=== PATIENT | female | born 1970 | race Caucasian/White ===

== ENCOUNTER → 2016-12-07 | Outpatient (CLI) | payer OTHER ==
[~2016-12-07] MED LIST: ALPR0.25 PO; AZEL137S4 NAS; BUSP15TA PO; CALC-55 PO; CETI10TA24 PO; ETAN50DI2 INJ; FLUO40CA2 PO; FLUT16SP NS; INUL2TAB4 PO; MONT10TA9 PO; MULT-185 PO; VITA1TAB86 PO
== END | disposition home or self-care (01) ==
LOC: CFH 12:06
PROVIDERS: ATTEND Genetic Counselor, MS
DX: N63 Unspecified lump in breast (principal)
CPT/HCPCS: 76641; G0206